=== PATIENT | female | born 1960 | race Caucasian/White ===

== ENCOUNTER 2020-03-18 11:02 | Emergency (ER) | payer MEDICAID ==
[~2020-03-18] VITALS: Ht 170.2 cm; Wt 63.0 kg
[~2020-03-18 11:02] MED LIST: BACL10TA PO; DULO-31 PO; EST1T PO; HYDR-3972 PO; IBUP-1986 PO
[2020-03-18] MEDS ORDERED: diazepam 5mg tablet PO ONE (13:10)
--- NOTE | 2020-03-18 13:18 | NUR ---
pt states she needs medication for claustrophobia. given valium. jewelry taken off and put in pt's purse.
[2020-03-18] MEDS ORDERED: morphine 5 MG/ML injection IM ONE (13:45)
[2020-03-18] MEDS ORDERED: morphine 2 MG/ML inj. syringe IV ONE (13:50)
[2020-03-18] MEDS ORDERED: morphine 10mg/ml inj. IV ONE (14:20)
--- NOTE | 2020-03-18 15:12 | NUR ---
pt was having a hard time staying still for the MRI. this is why she received so much morphine. we were able to get a limited study done. PA aware. the pt is able to walk and talk still. much more calm and not fidgeting as much. pt was stating "my legs jump" when she was trying to stay still for the MRI.
[2020-03-18 16:15] VITALS: BP 115/75
== END 2020-03-18 16:11 | disposition home or self-care (01) ==
LOC: ER 11:02
DX: G89.29 Other chronic pain (principal); M54.5 Low back pain; M25.571 Pain in right ankle and joints of right foot; R53.1 Weakness; M54.31 Sciatica, right side; Z79.899 Other long term (current) drug therapy
CPT/HCPCS: 72148; 96374; 96376; 99284; J2270

== ENCOUNTER 2020-03-20 14:12 | Emergency (ER) | payer MEDICAID ==
[~2020-03-20] VITALS: Ht 170.2 cm; Wt 63.0 kg
[2020-03-20] MEDS ORDERED: HYDROcodone/acetaminophen 10/325mg tab PO ONE (16:10)
[2020-03-20] MEDS ORDERED: GABA-530 PO (16:17)
[2020-03-20 16:56] VITALS: BP 151/78
== END 2020-03-20 16:32 | disposition home or self-care (01) ==
LOC: ER 14:14
DX: S80.811A Abrasion, right lower leg, initial encounter (principal); M54.31 Sciatica, right side; Z79.899 Other long term (current) drug therapy; X58.XXXA Exposure to other specified factors, initial encounter; Y93.89 Activity, other specified; Y92.89 Other specified places as the place of occurrence of the external cause; Y99.8 Other external cause status
CPT/HCPCS: 99283

== ENCOUNTER 2024-10-30 10:46 | Outpatient (CLI) | payer MEDICARE, MEDICAID ==
[~2024-10-30 10:46] MED LIST changes: +GABA-530 PO
== END 2024-10-30 23:59 | disposition home or self-care (01) ==
LOC: MRI 10:46
PROVIDERS: ATTEND Neuromusculoskeletal Medicine & OMM
DX: H70.93 Unspecified mastoiditis, bilateral (principal); R41.3 Other amnesia
CPT/HCPCS: 70551; 95816